=== PATIENT | male | born 1995 | race African-American/Black ===

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

== ENCOUNTER 2017-03-06 23:14 | Emergency (ER) | payer OTHER ==
[~2017-03-06] VITALS: Ht 170.2 cm; Wt 93.2 kg
[~2017-03-06 23:14] MED LIST: CLEO300C2 PO
[2017-03-07] MEDS ORDERED: DERMABOND TOPICAL SKIN ADHESIVE TOP ONE (01:45)
[2017-03-07 02:05] VITALS: BP 144/68
== END 2017-03-07 02:07 | disposition home or self-care (01) ==
LOC: M ED 23:14
DX: S61.012A Laceration without foreign body of left thumb without damage to nail, initial encounter (principal); W26.0XXA Contact with knife, initial encounter; Y92.018 Other place in single-family (private) house as the place of occurrence of the external cause; Y93.89 Activity, other specified; Y99.8 Other external cause status

== ENCOUNTER 2017-09-10 08:28 | Emergency (ER) | payer OTHER ==
[2017-09-10] MEDS: ONDANSETRON 4 MG ORAL DISINTEGRATING TAB (Q0162 PER 1MG) PO (10:13)
== END 2017-09-10 10:59 | disposition home or self-care (01) ==
LOC: M ED 08:28
DX: R51 Headache (principal)
CPT/HCPCS: Q0162